=== PATIENT | male | born 1975 | race Two or more races ===

== ENCOUNTER 2021-06-21 09:06 | Emergency (ER) | payer MEDICAID, SELFPAY ==
--- NOTE | ~2021-06-21 | XR_ITS ---
EXAMINATION: XR KNEE, LEFT CLINICAL INFORMATION: Pain and swelling COMPARISON: None TECHNIQUE: Four views of the left knee. FINDINGS: Bone alignment is normal. No fracture or dislocation is seen. There are small osteophytes at the medial femoral tibial joint. There are small osteophytes at the patellofemoral joint. There are osteophytes at the quadriceps tendon insertion and patellar tendon origin. There are periarticular soft tissue calcification or ossification adjacent to the inferior patella. There is a joint effusion. There may be soft tissue swelling over the inferior patella and patellar tendon. XR/XR knee LT 4V IMPRESSION: Mild degenerative changes at the medial femoral tibial and patellofemoral joints. Joint effusion. Patellar osteophytes and question soft tissue swelling over the inferior patella and patellar tendon origin.
[2021-06-21 09:12] VITALS: BP 111/69; PULSE 65; RESP 19; TEMP 36.6; O2SAT 97; BMI 29.7
--- NOTE | 2021-06-21 09:48 | ED_ITS ---
HPI - Extremity Injury (Lower) General Chief Complaint: Extremity Injury, Lower Stated Complaint: L knee pain Time Seen by Provider: 06/21/21 09:47 Source: patient Mode of arrival: ambulatory History of Present Illness HPI Narrative: 45-year-old male with no significant past medical history presenting to the ED complaining of acute on chronic left knee pain with intermittent swelling x 7 years. Admits swelling worsened over the past few days. Denies recent injury/trauma or fall, numbness, tingling, weakness. MD complaint: knee injury Onset (ago): year(s) Related Data Previous Rx's Medication Instructions Recorded acetaminophen 500 mg tablet 500 mg PO Q6H PRN #20 tab 06/21/21 (Tylenol Extra Strength) diclofenac sodium 3 % topical gel 1 appl TOPICAL BID PRN #100 g 06/21/21 naproxen 500 mg tablet 500 mg PO BID PRN 10 Days #20 tab 06/21/21 Allergies Allergy/AdvReac Type Severity Reaction Status Date / Time No Known Allergies Allergy Unverified 11/15/19 16:53 [No Known Allergies*] Review of Systems Review of Systems: Constitutional: No Fever, No Chills ENT/Mouth: No Ear Pain, No Nasal Congestion, No Sinus Pain, No sore throat, No Rhinorrhea, No Swallowing Difficulty Cardiovascular: No Chest Pain, No SOB Respiratory: No Cough, No Sputum, No Wheezing Gastrointestinal: No Nausea, No Vomiting, No Diarrhea, No Constipation, No Abdominal pain Genitourinary: No Dysuria, No Urinary Frequency, No Urgency, No Flank Pain Musculoskeletal: + joint pain, No Myalgias, + Joint Swelling Skin: No Skin Lesions, No rash Neuro: No Weakness, No Numbness, No Paresthesias Yes all other systems are reviewed and are negative [facility] Past Medical History Attestation statement: The following information was validated with the patient. Social History Social History Advance Directives: No Advance Directives Information Provided: No Physical Exam Vital Signs: Vital Signs: Last Vital Signs Temp 98 F 06/21/21 09:12 Pulse 65 06/21/21 09:12 Resp 19 06/21/21 09:12 BP 111/69 06/21/21 09:12 Pulse Ox 97 06/21/21 09:12 BMI result Body Mass Index 29.7 Const: General: cooperative, healthy appearing and no acute distress Orientation/consciousness: patient oriented x3 Limitations: no limitations HEENT: Head: Yes normal to inspection and Yes atraumatic Ears: hearing grossly normal bilaterally General nose exam: Normal external nose present Face and sinus: Yes normal facial exam Eyes: General: appearance normal, both eyes and all related structures EOM: EOMs intact bilaterally Neck: Neck: Yes normal visual inspection and Yes no meningeal signs Resp: Effort & Inspection: normal respiratory effort and no respiratory distress Cardio: Rate: regular rate Peripheral pulses: dorsalis pedis present Skin: Rashes: no rashes Wounds: no wounds Neuro: General: patient oriented x3, tone normal and no meningeal signs Gait exam (Neuro): Normal gait present Extrem: Other: Left knee with noted suprapatellar swelling. Diffusely tender to palpation. No erythema/warmth/crepitus or fluctuance/induration. Decreased flexion secondary to pain. Neurovascular intact distally. Course Course Course Narrative: XR knee LT 4V IMPRESSION: Mild degenerative changes at the medial femoral tibial and patellofemoral joints. Joint effusion. Patellar osteophytes and question soft tissue swelling over the inferior patella and patellar tendon origin. >> results discussed with patient with american sign language interpreter. Prashant wrap applied for comfort and stability. Discussed worrisome signs and symptoms and strict return precautions MDM - Extremity Injury (Lower) MDM Narrative Medical decision making narrative: 45-year-old male with no significant past medical history presenting to the ED complaining of acute on chronic left knee pain with intermittent swelling x 7 years. On exam vital signs stable, NAD cyst nontoxic, concern for ligamentous/tendon or meniscal injury. For concern for fracture/dislocation plan: X-ray, IM Toradol Medical Records Attestation: I reviewed the patient's medical records. Lab Data Attestation: I reviewed the patient's lab results. Discharge Plan Discharge Clinical Impression: Joint effusion of knee, Tendonitis of knee, left Patient Disposition: Home, Self-Care Instructions: Swollen Knee Joint (ED), Tendinitis (ED) Additional Instructions: Your x-ray shows mild degenerative changes as well as a joint effusion and some swelling over your patellar tendon You need to follow-up with orthopedics. Wear Prashant wrap at home for comfort and stability. Naproxen as an anti-inflammatory/pain medication, take with food. Diclofenac as a topical anti-inflammatory pain medication, use as needed. In addition take Tylenol. Rest. Ice. Elevate. If symptoms persist or worsen return to the ED Vides radiograf?a muestra cambios degenerativos leves, as? shante un derrame articular y algo de inflamaci?n sobre el tend?n rotuliano. Necesita seguimiento con ortopedia. Use la venda Prashant en casa para mayor comodidad y estabilidad. Naproxeno shante medicamento antiinflamatorio/analg?sico, t?gimenez con alimentos. Diclofenaco shante analg?sico antiinflamatorio t?gladys, util?celo seg?n sea necesario. Adem?s vernon Tylenol. Bonita. Hielo. Elevar. Si los s?ntomas persisten o empeoran, regrese al servicio de urgencias. Prescriptions: New acetaminophen [Tylenol Extra Strength] 500 mg tablet 500 mg PO Q6H PRN (Reason: pain or fever) Qty: 20 0RF naproxen 500 mg tablet 500 mg PO BID PRN (Reason: pain) 10 Days Qty: 20 0RF diclofenac sodium 3 % gel 1 appl topical BID PRN (Reason: pain) Qty: 100 0RF Referrals: Cristela Blanco PA-C [Physician Mechanical Maintenance Technician] - 1 week Print Language: Hebrew
[2021-06-21] MEDS: Ketorolac Tromethamine 30 MG/ML VIAL IM (10:08)
== END 2021-06-21 10:28 | disposition home or self-care (01) ==
PROVIDERS: Emergency Provider Emergency Medicine; PCP Internal Medicine Geriatric Medicine
DX: M25.462 Effusion, left knee (principal); M65.262 Calcific tendinitis, left lower leg; Z79.899 Other long term (current) drug therapy
CPT/HCPCS: 73564; 96372; 99284; J1885

== ENCOUNTER 2021-07-29 07:28 | Outpatient (REF) | payer MEDICAID, SELFPAY ==
--- NOTE | ~2021-07-29 | XR_ITS ---
EXAMINATION: LEFT KNEE X-RAY CLINICAL INFORMATION: Pain COMPARISON: Previous x-ray of the left knee May 2021 TECHNIQUE: [place] view of the left knee FINDINGS: There is arthritis at the patellofemoral joint. No fracture or dislocation is seen. Visualized soft tissues are normal. XR/XR knee LT 1V IMPRESSION: Arthritis at the patellofemoral joint.
== END 2021-07-29 07:29 | disposition home or self-care (01) ==
LOC: HO.HOSX 07:28
PROVIDERS: Visit Provider Physician Assistant
DX: M17.12 Unilateral primary osteoarthritis, left knee (principal)
CPT/HCPCS: 20610; 73560; 99202; J1040

== ENCOUNTER 2021-10-01 09:54 | Outpatient (REF) | payer MEDICAID, SELFPAY ==
--- NOTE | ~2021-10-01 | XR_ITS ---
EXAMINATION: XR KNEE, LEFT CLINICAL INFORMATION: Pain. COMPARISON: Radiographs dated 07/29/2021 and 06/21/2021. TECHNIQUE: AP, lateral, tunnel, and sunrise views of the left knee. FINDINGS: Bony alignment and mineralization are normal. The lateral, medial and patellofemoral joint space compartments are well-maintained. There is mild peripheral osteophyte formation of the medial joint space compartment. No fracture, dislocation or joint effusion is seen. There is no foreign body. XR/XR knee LT 4V IMPRESSION: 1. There is mild osteoarthritic change of the medial joint space compartment of the left knee. 2. No left knee fracture, dislocation or joint effusion is seen.
== END 2021-10-01 09:55 | disposition home or self-care (01) ==
LOC: HO.XRAY 09:54
PROVIDERS: PCP Internal Medicine Geriatric Medicine; Visit Provider Internal Medicine Geriatric Medicine
DX: M25.562 Pain in left knee (principal)
CPT/HCPCS: 73564

== ENCOUNTER 2023-06-29 11:10 | Outpatient (REF) | payer MEDICAID, SELFPAY ==
[2023-06-29 12:58] LABS: MANUAL DIFF FLAG NO
[2023-06-29 13:00] LABS: Basophils Percent Auto 0.6 % (0-2); Eosinophils Absolute Auto 0.9 X10*3/uL (0.0-0.4); Eosinophils Percent Auto 13.5 % (0-4); Hematocrit 44.6 % (42.0-52.0); Hemoglobin 14.7 g/dl (14.0-18.0); Imm Gran Abs Auto 0.02 X10*3/uL (0.00-0.03); Imm Gran Pct Auto 0.3 % (0.0-0.4); Lymphocytes Absolute Auto 2.9 X10*3/uL (1.2-4.9); Lymphocytes Percent Auto 43.5 % (20-40); Mean Corpuscular Hemoglobin 28.3 pg (27.0-33.0); Mean Corpuscular Volume 85.9 fL (80.0-98.0); Monocytes Absolute Auto 0.6 X10*3/uL (0.1-1.2); Monocytes Percent Auto 9.1 % (2-11); Neutrophils Absolute Auto 2.2 x10*3/uL (2.0-8.3); Platelet Count 229 X10*3/uL (160-400); Red Blood Count 5.19 X10*6/uL (4.60-5.80); Red Cell Distribution Width 15.1 % (11.0-16.0); White Blood Count 6.6 X10*3/uL (4.8-10.8)
[2023-06-29 13:23] LABS: Alanine Aminotransferase 14 U/L (0-40); Albumin Level 4.3 g/dL (3.5-5.0); Alkaline Phosphatase 82 U/L (39-117); Anion Gap 12 (12-20); Aspartate Amino Transferase 14 U/L (5-37); Bilirubin Total 0.4 mg/dL (0.0-1.0); Blood Urea Nitrogen 17 mg/dL (9-16); Calcium 9.8 mg/dL (8.4-10.2); Carbon Dioxide 29 mmol/L (22-29); Chloride 105 mmol/L (96-108); Estimated Glomerular Filt Rate 56; Glucose Random 102 mg/dL (60-115); Potassium 4.3 mmol/L (3.3-5.1); Sodium 142 mmol/L (135-145); Total Protein 7.5 g/dL (6.5-8.0)
[2023-06-30 08:36] LABS: HBS Num1 0.45 mIU/mL (0-7.99); HBsAGNum1 0.28 S/CO (0.00-0.99); HIV AB/AG Nonreactive (Nonreactive); HIV Num 1 0.05 S/CO (0.00-0.99); Hepatitis B Surface Antigen Negative (Negative); ~HepC Num1 0.06 S/CO (0.00-0.79); ~Hepatitis B Surface Antibody NONREACTIVE (Nonreactive); ~Hepatitis C Antibody Nonreactive (Nonreactive)
== END 2023-06-29 11:11 | disposition home or self-care (01) ==
LOC: HO.HHCL 11:10
PROVIDERS: Visit Provider Internal Medicine Geriatric Medicine
DX: F11.20 Opioid dependence, uncomplicated (principal)
CPT/HCPCS: 36415; 80053; 85025; 86706; 86803; 87340; 87389